=== PATIENT | female | born 1985 | race Caucasian/White ===

== ENCOUNTER 2023-11-24 19:22 | Emergency (ER) | payer BC ==
--- OUTSIDE RECORDS SUMMARY | 2023-11-24 19:25 | XMS REPORT | Continuity of Care Document ---
Author Name Unknown Address [address] [place] [address] thconnect Address [address] [place] [address] Care Team Providers Care Curriculum And Assessment Director Name Role Phone Eva_Juan Attending Clinician Unavailable Eva_Juan Admitting Clinician Unavailable Encounters Start Date/Time End Date/Time Encounter Type Admission Type Attending Clinicians Care Facility Care Department Encounter ID Source 2022-05-02 00:00:00 2022-05-02 00:00:00 Outpatient Sh[facility] VFP VFP [id number] [facility] e
[2023-11-24] MEDS ORDERED: KETOROLAC 30 MG/ML INJ ONE (19:47)
[2023-11-24] MEDS ORDERED: ONDANSETRON 4 MG/2 ML VIAL ONE (19:47)
--- NOTE | 2023-11-24 20:41 | RAD REPORT ---
EXAM DESCRIPTION: US - Transvaginal Study Probe - 11/24/2023 8:34 pm CLINICAL HISTORY: VAGINAL BLEEDING Pelvic pain. COMPARISON: No comparisons FINDINGS: The uterus is normal in size, shape and echotexture. The uterus measures 6.9 x 5.4 cm. 21 mm fibroid in the posterior mid aspect of the uterus along the subserosal level. The endometrial stripe measures 16 mm, normal. Both ovaries are normal in size, shape and echotexture. The right ovary measures 3.6 x 2.6 x 1.9 cm. The left ovary measures 5.0 x 3.6 x 3.4 cm. No ovarian or parovarian lesions. No adnexal masses. Normal Doppler blood flow was demonstrated to both ovaries. No significant pelvic ascites. IMPRESSION: 21 mm subserosal posterior myometrial fibroid.
[2023-11-24 20:45] LABS: Absolute Basophils 0.1 K/uL (0-0.5); Absolute Eosinophils 0.3 K/uL (0-0.5); Absolute Lymphocytes (CBC) 3.5 K/uL (0.7-4.9); Absolute Monocytes 0.8 K/uL (0.1-1.3); Basophils % 0.9 % (0-1.3); Eosinophils % 1.8 % (0-4.4); Hematocrit 30.3 % (36.0-45.0); Hemoglobin 9.6 g/dL (12.0-15.0); Lymphocytes % 25.4 % (15.3-44.8); MCH 20.9 pg (27.0-35.0); MCHC 31.7 g/dL (32.0-36.0); MPV 8.4 fL (7.6-11.3); Neutrophils % 65.9 % (41.7-73.7); Nucleated Red Blood Cells % 0.1 % (0-0); Platelets 345 thou/uL (152-406); RBC Red Blood Cell Count 4.59 M/uL (3.86-4.86); Red Cell Distribution Width 15.3 % (12.1-15.2)
[2023-11-24 21:01] LABS: Anion Gap 8.5 mEq/L (5.0-15.0); Potassium 3.5 mEq/L (3.5-5.1)
[2023-11-24 21:05] LABS: Specific Gravity 1.018 (1.005-1.030)
[2023-11-24 21:06] LABS: Specific Gravity 1.018 (1.005-1.030); Sqamous Epithelial <5 /HPF (None Seen); Urine Bacteria None Seen /HPF (<20); Urine Bilirubin NEGATIVE (Negative); Urine Blood 3+ (Negative); Urine Clarity Turbid (Clear); Urine Color Light-Yellow (Yellow); Urine Culture Reflex Order NOT NEEDED; Urine Glucose NEGATIVE (Negative); Urine Ketones NEGATIVE (Negative); Urine Microscopic Reflex YN ORDER UMIC; Urine Mucus Slight /HPF (None Seen); Urine Nitrite NEGATIVE (Negative); Urine Protein NEGATIVE (Negative); Urine RBC >50 /HPF (None Seen); Urine Urobilinogen Normal (Normal); Urine WBC <5 /HPF (<5)
--- NOTE | 2023-11-24 21:12 | EDPHYS ---
Physician Documentation [facility] Name: Zuleyka Walker Age: 38 yrs Sex: Female : 1985 Arrival Date: 11/24/2023 Time: 19:22 Bed 16 Private MD: ED Physician Bipin Feng HPI: 11/23 21:05 This 38 yrs old Female presents to ER via Ambulatory with complaints of Vaginal kb Bleeding, Vaginal Pain. 21:05 Pt is a 38 year old female who presents for irregular vaginal bleeding that started 5 kb days ago. States she started her period on Sunday and it ended on Sunday, which is abnormal, then started bleeding again on Sunday. States she has had to have blood transfusions in the past due to her heavy and irregular cycles so she wanted to get checked out. . Historical: - Allergies: 20:58 No Known Allergies; tl4 - Home Meds: 20:58 None [Active]; tl4 - PMHx: 20:58 None; tl4 - PSHx: 20:58 None; tl4 - Immunization history:: Adult Immunizations unknown. - Infectious Disease History:: Denies. - Social history:: Smoking status: Patient denies any tobacco usage or history of. ROS: 21:03 Constitutional: As per HPI kb Exam: 21:03 Constitutional: This is a well developed, well nourished patient who is awake, alert, kb and in no acute distress. Head/Face: Normocephalic, atraumatic. ENT: Moist Mucous membranes Cardiovascular: Regular rate Respiratory: Respirations even and unlabored. No increased work of breathing. Talking in full sentences Skin: Warm, dry with normal turgor. Normal color. MS/ Extremity: Pulses equal, no cyanosis. Neurovascular intact. Full, normal range of motion. Neuro: Awake and alert, GCS 15, oriented to person, place, time, and situation. Moves all extremities. Normal gait. 21:03 Abdomen/GI: Inspection: obese Bowel sounds: normal, Palpation: soft, in all quadrants, moderate abdominal tenderness, in the suprapubic area, right lower quadrant and left lower quadrant, Vital Signs: 19:30 BP 147 / 68; Pulse 84; Resp 18; Temp 98.5(O); Pulse Ox 100% on R/A; Weight 149.69 kg; tl4 Height 5 ft. 5 in. ; Pain 8/10; 19:30 Body Mass Index 54.91 (149.69 kg, 165.1 cm) tl4 19:30 Pain Scale: Adult tl4 MDM: 19:26 Patient medically screened. kb 21:04 Differential diagnosis: appendicitis, nonspecific abdominal pain, urinary tract kb infection. Data reviewed: vital signs, nurses notes. 21:05 Historians other than the Patient: Spouse/Significant Other: . Counseling: I had kb a detailed discussion with the patient and/or guardian regarding the historical points, exam findings, and any diagnostic results supporting the discharge/admit diagnosis, lab results, radiology results, the need for outpatient follow up, an OB/Gyne specialist, to return to the emergency department if symptoms worsen or persist or if there are any questions or concerns that arise at home. 11/23 19:34 Order name: Basic Metabolic Panel; Complete Time: 21:03 kb 11/23 19:34 Order name: CBC with Diff kb 11/23 19:34 Order name: Test, Urine; Complete Time: 21:09 kb 11/23 19:34 Order name: Urinalysis w/ reflexes; Complete Time: 21:09 kb 11/23 20:49 Order name: CBC Smear Scan EDMS 11/23 19:34 Order name: US Transvaginal Study (Probe); Complete Time: 20:43 kb 11/23 19:34 Order name: IV Saline Lock; Complete Time: 20:42 kb 11/23 19:34 Order name: Labs collected and sent; Complete Time: 20:42 kb 11/23 19:34 Order name: NPO; Complete Time: 19:38 kb Administered Medications: 20:53 Drug: Ondansetron IVP 4 mg IVP once; over 2 minutes Route: IVP; Infused Over: 2 mins; tl4 Site: left forearm; 20:53 Drug: Ketorolac IVP 15 mg IVP once Route: IVP; Site: left forearm; tl4 Disposition Summary: 11/24/23 21:11 Discharge Ordered Notes: Location: Home kb Condition: Stable kb Diagnosis - Abnormal uterine and vaginal bleeding, unspecified kb - Leiomyoma of uterus, unspecified kb Followup: kb - With: Private Physician - When: 2 - 3 days - Reason: Recheck today's complaints, Continuance of care, Re-evaluation by your physician Followup: kb - With: Emergency Department - When: As needed - Reason: Worsening of condition Discharge Instructions: - Discharge Summary Sheet kb - Uterine Fibroids, [id number] kb - Abnormal Uterine Bleeding, [id number] kb Forms: - Medication Reconciliation Form kb - Antibiotic Education kb - Prescription Opioid Use kb - Patient Portal Instructions kb - Leadership Thank You Letter kb - Work release form jb4 Prescriptions: - Zofran 4 mg Oral tablet - take 1 tablet ORAL route every 6 hours As needed; 12 tablet; Refills: 0, kb Product Selection Permitted Addendum: 11/26/2023 07:18 Co-signature as Attending Physician, Bipin Feng MD I reviewed the patient's care r n provided by the Advanced Practice Provider and agree with the diagnosis and treatment plan. Signatures: Dispatcher [employer] EDJosselin Harris, ROOM SERVICE ATTENDANT-C ROOM SERVICE ATTENDANT-Ckb Bipin Feng MD MD rn Logdahl, Darvin RN RN tl4 Corrections: (The following items were deleted from the chart) 11/23 21:05 21:03 Abdomen/GI: Inspection: abdomen appears normal, Bowel sounds: normal, Palpation: kb soft, in all quadrants, moderate abdominal tenderness, in the suprapubic area, right lower quadrant and left lower quadrant, kb 21:05 21:03 Back: CVA tenderness, that is mild, is noted on the right, kb kb
--- NOTE | 2023-11-24 21:12 | ER ---
Nurse's Notes [facility] Name: Zuleyka Walker Age: 38 yrs Sex: Female : 1985 Arrival Date: 11/24/2023 Time: 19:22 Bed 16 Private MD: Diagnosis: Abnormal uterine and vaginal bleeding, unspecified;Leiomyoma of uterus, unspecified Presentation: 11/23 19:30 Chief complaint: Patient states: Pt c/o heavy vaginal bleeding with irregular periods. tl4 Pt c/o lower abdominal pain. Coronavirus screen: At this time, the client does not indicate any symptoms associated with coronavirus-19. Ebola Screen: No symptoms or risks identified at this time. Initial Sepsis Screen: Does the patient meet any 2 criteria? No. Patient's initial sepsis screen is negative. Does the patient have a suspected source of infection? No. Patient's initial sepsis screen is negative. Risk Assessment: Do you want to hurt yourself or someone else? Patient reports no desire to harm self or others. Onset of symptoms was November 22, 2023. 19:30 Method Of Arrival: Ambulatory tl4 19:30 Acuity: EMERSON 3 tl4 Triage Assessment: 19:35 General: Appears in no apparent distress. Behavior is calm, cooperative. Pain: tl4 Complains of pain in pelvis. EENT: No signs and/or symptoms were reported regarding the EENT system. Neuro: Level of Consciousness is awake, alert, obeys commands, Oriented to person, place, time, situation, Moves all extremities. Full function Gait is steady, Speech is normal, Facial symmetry appears normal. Cardiovascular: Capillary refill < 3 seconds Patient's skin is warm and dry. Respiratory: Airway is patent Respiratory effort is even, unlabored, Respiratory pattern is regular, symmetrical, Breath sounds are clear bilaterally. GI: No signs and/or symptoms were reported involving the gastrointestinal system. : Reports vaginal bleeding that is heavy flow. Derm: No signs and/or symptoms reported regarding the dermatologic system. Musculoskeletal: No signs and/or symptoms reported regarding the musculoskeletal system. Historical: - Allergies: 20:58 No Known Allergies; tl4 - Home Meds: 20:58 None [Active]; tl4 - PMHx: 20:58 None; tl4 - PSHx: 20:58 None; tl4 - Immunization history:: Adult Immunizations unknown. - Infectious Disease History:: Denies. - Social history:: Smoking status: Patient denies any tobacco usage or history of. Screenin:01 [facility] ED Fall Risk Assessment (Adult) History of falling in the last 3 months, tl4 including since admission No falls in past 3 months (0 pts) Confusion or Disorientation No (0 pts) Intoxicated or Sedated No (0 pts) Impaired Gait No (0 pts) Mobility Assist Device Used No (0 pt) Altered Elimination No (0 pt) Score/Fall Risk Level 0 - 2 = Low Risk Oriented to surroundings, Maintained a safe environment, Educated pt \T\ family on fall prevention, incl call for assistance when getting out of bed, Assessed \T\ reinforced patient's understanding of fall precautions. Abuse screen: Denies threats or abuse. Denies injuries from another. Nutritional screening: No deficits noted. Tuberculosis screening: No symptoms or risk factors identified. Assessment: 21:00 Reassessment: No changes from previously documented assessment. Patient and/or family tl4 updated on plan of care and expected duration. Pain level reassessed. Patient is alert, oriented x 3, equal unlabored respirations, skin warm/dry/pink. 21:46 Reassessment: Patient appears in no apparent distress at this time. Patient and/or jb4 family updated on plan of care and expected duration. Pain level reassessed. Patient is alert, oriented x 3, equal unlabored respirations, skin warm/dry/pink. Vital Signs: 19:30 BP 147 / 68; Pulse 84; Resp 18; Temp 98.5(O); Pulse Ox 100% on R/A; Weight 149.69 kg; tl4 Height 5 ft. 5 in. ; Pain 8/10; 19:30 Body Mass Index 54.91 (149.69 kg, 165.1 cm) tl4 19:30 Pain Scale: Adult tl4 ED Course: 19:25 Patient arrived in ED. gm2 19:26 Josselin Fernandez F[facility]-C [facility]. kb 19:26 Bipin Feng MD is Attending Physician. kb 19:31 Darvin Bean, TIMOTHY is Primary Nurse. tl4 20:04 US Transvaginal Study (Probe) Sent. tl4 20:36 US Transvaginal Study (Probe) In Process Unspecified. EDMS 20:41 Initial lab(s) drawn, by me, sent to lab. Accessed peripheral vein via ultrasound, cm10 utilizing dynamic ultrasound technique Blood collected. 20:42 Basic Metabolic Panel Sent. tl4 20:42 CBC with Diff Sent. tl4 20:53 Test, Urine Sent. tl4 20:53 Urinalysis w/ reflexes Sent. tl4 20:58 Triage completed. tl4 21:00 Arm band placed on right wrist. tl4 21:02 No provider procedures requiring assistance completed. tl4 21:02 Patient has correct armband on for positive identification. Placed in gown. Bed in low tl4 position. Call light in reach. Side rails up X 1. Adult w/ patient. Provided Education on: ED process. Client placed on continuous cardiac and pulse oximetry monitoring. NIBP monitoring applied. Door closed. Noise minimized. Moved to private room. Warm blanket given. 21:46 IV discontinued, intact, bleeding controlled, No redness/swelling at site. Pressure jb4 dressing applied. Administered Medications: 20:53 Drug: Ondansetron IVP 4 mg IVP once; over 2 minutes Route: IVP; Infused Over: 2 mins; tl4 Site: left forearm; 20:53 Drug: Ketorolac IVP 15 mg IVP once Route: IVP; Site: left forearm; tl4 Medication: 21:01 VIS not applicable for this client. tl4 Outcome: 21:11 Discharge ordered by . rupali 21:46 Discharged to home ambulatory, with family, jb4 21:46 Condition: stable 21:46 Discharge instructions given to patient, Instructed on discharge instructions, follow up and referral plans. medication usage, Demonstrated understanding of instructions, follow-up care, medications, Prescriptions given X 1, 21:46 Patient left the ED. jb4 Signatures: Dispatcher [employer] EDOK Josselin Fernandez, CALL CENTER ASSISTANT-C FELIZ-Alex Rivera RN RN jb4 Nenita Hanson, RN RN cm10 Izzy Heck 2 Darvin Bean RN RN tl4
[2023-11-24 22:19] VITALS: BP 147/68; TEMP 98.5; O2SAT 100
[2023-11-24 22:34] LABS: Platelet Estimate ADEQ; White Blood Cell Scan OK (OK)
[2023-11-24 22:35] LABS: Blood Morphology Comment NOTED (NOT SEEN); Hypochromasia 1+; Microcytosis 1+
== END 2023-11-24 21:46 | disposition home or self-care (01) ==
LOC: ER 19:22
DX: N93.9 Abnormal uterine and vaginal bleeding, unspecified (principal); D25.9 Leiomyoma of uterus, unspecified
CPT/HCPCS: 85025; 81001; 80048; 36415; 81025; 76830; J2405

== ENCOUNTER 2024-05-22 17:59 | Emergency (ER) | payer BC ==
--- NOTE | 2024-05-22 21:21 | RAD REPORT ---
EXAMINATION: ONE VIEW CHEST XR CLINICAL INDICATION: Female, 39 years old.,SOB TECHNIQUE: Frontal chest projection is submitted. Examination is limited by patient positioning and t echnique. COMPARISON: No prior exam. FINDINGS: Superimposition of soft tissues along the lung bases limits penetration. The lungs are well inflated and clear. No pneumothorax or sizable effusion. The heart is normal in s ize. IMPRESSION: No acute intrathoracic abnormalities.
[2024-05-22 21:57] LABS: Absolute Basophils 0.1 K/uL (0-0.5); Absolute Eosinophils 0.1 K/uL (0-0.5); Absolute Lymphocytes (CBC) 2.7 K/uL (0.7-4.9); Absolute Monocytes 0.9 K/uL (0.1-1.3); Absolute Neutrophil 9.1 K/uL (1.8-8.0); Basophils % 0.9 % (0-1.3); Eosinophils % 1.1 % (0-4.4); Hematocrit 23.4 % (36.0-45.0); Hemoglobin 6.7 g/dL (12.0-15.0); Lymphocytes % 20.7 % (15.3-44.8); MCH 16.6 pg (27.0-35.0); MCHC 28.8 g/dL (32.0-36.0); MCV 57.4 fL (80-100); MPV 8.6 fL (7.6-11.3); Monocytes % 6.8 % (3.3-12.3); Neutrophils % 70.5 % (41.7-73.7); Platelets 275 thou/uL (152-406); RBC Red Blood Cell Count 4.07 M/uL (3.86-4.86); Red Cell Distribution Width 18.7 % (12.1-15.2)
[2024-05-22 22:13] LABS: ALT/SGPT 25 U/L (13-56); AST/SGOT 15 U/L (15-37); Albumin 4.1 g/dL (3.4-5.0); Alkaline Phosphatase 74 U/L (45-117); Anion Gap 8.7 mEq/L (5.0-15.0); BUN Blood Urea Nitrogen 9 mg/dL (7-18); Bicarbonate 28 mEq/L (21-32); Bilirubin Total 0.2 mg/dL (0.2-1.0); Globulin 4.1 g/dL (2.3-3.5); Glomerular Filtration Rate 73 ml/min (=/>90); Glucose Level 90 mg/dL (74-106); Potassium 3.7 mEq/L (3.5-5.1); Protein, Total 8.2 g/dL (6.4-8.2); Sodium Level 138 mEq/L (136-145)
[2024-05-22 22:15] LABS: Bilirubin Direct < 0.2 mg/dL (0-0.2)
[2024-05-22 23:28] LABS: Ferritin 1.8 ng/mL (8-252)
[2024-05-22] MEDS ORDERED: HYDROCODONE/APAP 7.5/325 MG TAB ONE (23:39)
[2024-05-22 23:50] LABS: Blood Morphology Comment NOTED (NOT SEEN); Hypochromasia 3+; Microcytosis 3+; Platelet Estimate ADEQ; Polychromasia 2+; White Blood Cell Scan OK (OK)
[2024-05-22] MEDS ORDERED: NA CHLORIDE 0.9% 250 ML ONE (23:58)
[2024-05-23] MEDS ORDERED: DIAZEPAM 5 MG TABLET ONE (03:01)
[2024-05-23] MEDS ORDERED: HYDROCODONE/APAP 10/325 TAB ONE (06:16)
--- NOTE | 2024-05-23 07:54 | ER ---
Nurse's Notes [facility] Name: Zuleyka Walker Age: 39 yrs Sex: Female : 1985 Arrival Date: 05/22/2024 Time: 17:59 Bed 8 Private MD: Diagnosis: Symptomatic Anemai , Dental Pain, Menorrhagia and anemia Presentation: 05/22 18:40 Chief complaint: Patient states: STATES OBGYN TOLD PT TO COME TO ED DUE TO HEMOGLOBIN db 6.6. STATES ALSO HAS LEFT UPPER DENTAL PAIN SINCE YESTERDAY. Coronavirus screen: Client denies travel out of the [place] in the last 14 days. At this time, the client does not indicate any symptoms associated with coronavirus-19. Ebola Screen: Patient negative for fever greater than or equal to 101.5 degrees Fahrenheit, and additional compatible Ebola Virus Disease symptoms Patient denies exposure to infectious person. Patient denies travel to an Ebola-affected area in the 21 days before illness onset. No symptoms or risks identified at this time. Initial Sepsis Screen: Does the patient meet any 2 criteria? No. Patient's initial sepsis screen is negative. Does the patient have a suspected source of infection? No. Patient's initial sepsis screen is negative. Risk Assessment: Do you want to hurt yourself or someone else? Patient reports no desire to harm self or others. Onset of symptoms was May 22, 2024. 18:40 Method Of Arrival: Ambulatory db 18:40 Acuity: EMERSON 3 db Triage Assessment: 18:41 General: Appears in no apparent distress. comfortable, Behavior is calm, cooperative. db Pain: Complains of pain in mouth. EENT: Reports pain in gums and left buccal mucosa. Respiratory: Airway is patent Respiratory effort is even, unlabored, Respiratory pattern is regular, symmetrical. 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 - Infectious Disease History:: Denies. - Social history:: Smoking status: Patient denies any tobacco usage or history of. Screenin:24 Abuse screen: Denies threats or abuse. Nutritional screening: No deficits noted. vc1 Tuberculosis screening: No symptoms or risk factors identified. 22:05 [facility] ED Fall Risk Assessment (Adult) History of falling in the last 3 months, vc1 including since admission No falls in past 3 months (0 pts) Confusion or Disorientation No (0 pts) Intoxicated or Sedated No (0 pts) Impaired Gait No (0 pts) Mobility Assist Device Used No (0 pt) Altered Elimination No (0 pt) Score/Fall Risk Level 0 - 2 = Low Risk Oriented to surroundings, Maintained a safe environment, Educated pt \T\ family on fall prevention, incl call for assistance when getting out of bed. Assessment: 22:07 Reassessment: Patient appears in no apparent distress at this time. No changes from vc1 previously documented assessment. Patient and/or family updated on plan of care and expected duration. Pain level reassessed. Patient is alert, oriented x 3, equal unlabored respirations, skin warm/dry/pink. 23:41 Reassessment: Patient appears in no apparent distress at this time. No changes from vc1 previously documented assessment. Patient and/or family updated on plan of care and expected duration. Pain level reassessed. Patient is alert, oriented x 3, equal unlabored respirations, skin warm/dry/pink. 05/23 00:28 Reassessment: Patient appears in no apparent distress at this time. No changes from vc1 previously documented assessment. Patient and/or family updated on plan of care and expected duration. Pain level reassessed. 01:31 Reassessment: Patient appears in no apparent distress at this time. No changes from vc1 previously documented assessment. Patient and/or family updated on plan of care and expected duration. Pain level reassessed. Patient is alert, oriented x 3, equal unlabored respirations, skin warm/dry/pink. 03:43 Reassessment: Patient appears in no apparent distress at this time. No changes from vc1 previously documented assessment. Patient and/or family updated on plan of care and expected duration. Pain level reassessed. Patient is alert, oriented x 3, equal unlabored respirations, skin warm/dry/pink. 07:18 Reassessment: Patient and/or family updated on plan of care and expected duration. Pain mb9 level reassessed. Patient is alert, oriented x 3, equal unlabored respirations, skin warm/dry/pink. Vital Signs: 05/22 18:40 BP 128 / 73; Pulse 85; Resp 18; Temp 99; Pulse Ox 99% ; Weight 154.22 kg; Height 5 ft. db 5 in. ; Pain 8/10; 21:23 BP 136 / 70; Pulse 74; Resp 17; Pulse Ox 100% ; vc1 22:06 BP 127 / 69; Pulse 75; Resp 17; Pulse Ox 100% ; vc1 23:00 BP 143 / 83; Pulse 72; Resp 18; Pulse Ox 100% ; vc1 05/23 00:00 BP 126 / 64; Pulse 71; Resp 20; Pulse Ox 99% ; vc1 01:30 BP 131 / 62; Pulse 72; Resp 18; Pulse Ox 98% ; vc1 03:30 BP 134 / 66; Pulse 74; Resp 18; Pulse Ox 98% ; vc1 04:30 BP 110 / 63; Pulse 71; Resp 18; Pulse Ox 98% ; vc1 05:30 BP 95 / 73; Pulse 78; Resp 18; Pulse Ox 100% ; vc1 08:07 BP 114 / 74; Pulse 78; Resp 18; Temp 97.4; Pulse Ox 100% on R/A; mb9 05/22 18:40 Body Mass Index 56.58 (154.22 kg, 165.1 cm) db 05/22 18:40 Pain Scale: Adult db ED Course: 05/22 18:02 Patient arrived in ED. im 18:41 Triage completed. db 18:41 Arm band placed on. db 19:24 Roderick Merino PA is PHCP. cp 19:24 Roderick Dotson MD is Attending Physician. cp 20:53 XRAY Chest (1 view) In Process Unspecified. EDMS 22:01 Vannesa Triplett, TIMOTHY is Primary Nurse. vc1 22:05 Patient has correct armband on for positive identification. Bed in low position. Call vc1 light in reach. cardiac monitor technician on. Pulse ox on. NIBP on. 05/23 02:42 Attending Physician role handed off by Roderick Dotson MD sp4 02:42 Geovanny Pacheco MD is Attending Physician. sp4 07:40 Primary Nurse role handed off by Vannesa Triplett RN mb9 07:40 Fernandez, Karuna, RN is Primary Nurse. mb9 07:40 No provider procedures requiring assistance completed. mb9 08:07 IV discontinued, intact, bleeding controlled, No redness/swelling at site. Pressure mb9 dressing applied. Administered Medications: 00:11 Drug: Hydrocodone-Acetaminophen PO (7.5 mg-325 mg) 1 tabs PO once; RASS on ADMIN: dd2 Combtv4, Very Agttd3, Agttd2, Rstlss1, AlertClm0, Drwsy-1, Lt Sdtn-2, Mod Sdtn-3, Dp Sdtn-4, UnArsble-5 Route: PO; 00:45 Follow up: Response: No adverse reaction; Marked relief of symptoms; Pain is decreased vc1 03:03 Drug: Diazepam PO 5 mg PO once Route: PO; dd2 03:30 Follow up: Response: No adverse reaction; Marked relief of symptoms; Anxiety decreased vc1 06:25 Drug: Elgin PO 10 mg-325 mg 1 tabs PO once Route: PO; vc1 08:08 Follow up: Response: No adverse reaction mb9 Medication: 05/22 22:05 VIS not applicable for this client. vc1 Outcome: 05/23 07:53 Discharge ordered by . sp4 08:07 Discharged to home ambulatory, with family, mb9 08:07 Condition: stable 08:07 Discharge instructions given to patient, Instructed on discharge instructions, follow up and referral plans. Demonstrated understanding of instructions, follow-up care, 08:08 Patient left the ED. mb9 Signatures: Dispatcher [employer] EDMS Roderick Merino PA PA cp Calcote, Vanessa RN RN vc1 Beckie Cain RN RN db Wilkerson, Mary Beth, RN RN mb9 Geovanny Pacheco MD MD sp4 Jen Ross DIANA RN RN dd2
--- NOTE | 2024-05-23 07:54 | EDPHYS ---
Physician Documentation [facility] Name: Zuleyka Walker Age: 39 yrs Sex: Female : 1985 Arrival Date: 05/22/2024 Time: 17:59 Bed 8 Private MD: ED Physician Geovanny Pacheco HPI: 05/22 19:55 This 39 yrs old Female presents to ER via Ambulatory with complaints of Abnormal Lab cp Results, Toothache, Facial Swelling. 19:55 Patient is a 39-year-old female who presents to the emergency department after being cp referred by her NIB ADJUSTER for low hemoglobin. Patient reports a history of anemia and has in the past been transfused with blood and also iron transfusions due to low iron. Patient has a history of heavy menstrual bleeding has been the cause of her anemia in the past but denies any current vaginal bleeding. Patient does report some dizziness upon standing but denies any chest pain and/or shortness of breath. Patient also complains of left upper tooth pain and is requesting an antibiotic due to concern for an infection. NIB ADJUSTER: 18:41 LMP 05/05/2024, unknown db Historical: - Allergies: 18:41 Sulfa (Sulfonamide Antibiotics); db 18:41 clindamycin HCl; db 18:41 Vancomycin; db - PMHx: 18:41 Hypothyroidism; POLYPS ON UTERUS; Asthma; DEPRESSION; BIPLOAR; db - Immunization history:: Adult Immunizations unknown. - Infectious Disease History:: Denies. - Social history:: Smoking status: Patient denies any tobacco usage or history of. ROS: 20:00 Constitutional: Negative for body aches, chills, fever, poor PO intake, cp 20:00 Eyes: Negative for injury, pain, redness, and discharge, cp 20:00 ENT: Positive for dental pain, Negative for drainage from ear(s), ear pain, difficulty swallowing, difficulty handling secretions, 20:00 Cardiovascular: Negative for chest pain, edema, palpitations, 20:00 Respiratory: Negative for cough, shortness of breath, wheezing, 20:00 Abdomen/GI: Negative for abdominal pain, vomiting, diarrhea, constipation, 20:00 : Negative for vaginal bleeding, 20:00 Neuro: Positive for dizziness, Negative for altered mental status, numbness, syncope, weakness, 20:00 All other systems are negative, Exam: 20:05 Constitutional: The patient appears in no acute distress, alert, awake, non-toxic, well cp developed, well nourished, obese, 20:05 Head/Face: Normocephalic, atraumatic. cp 20:05 Eyes: Periorbital structures: appear normal, Conjunctiva: normal, no exudate, no injection, Sclera: no appreciated abnormality, Lids and lashes: appear normal, bilaterally, 20:05 ENT: External ear(s): are unremarkable, Nose: is normal, Mouth: Lips: moist, Oral mucosa: pink and intact, moist, Posterior pharynx: Airway: no evidence of obstruction, patent, Dental exam: abscess, is not appreciated, fractured teeth are noted, diffusely, missing teeth, diffusely, pain, that is mild, specifically in the upper left lateral incisor (#10) and upper left cuspid (#11), Voice: is normal, 20:05 Neck: ROM/movement: is normal, is supple, without pain, no range of motions limitations, no meningismus, 20:05 Chest/axilla: Inspection: normal, 20:05 Cardiovascular: Rate: normal, Rhythm: regular, 20:05 Respiratory: the patient does not display signs of respiratory distress, Respirations: normal, no use of accessory muscles, no retractions, labored breathing, is not present, Breath sounds: are clear throughout, no decreased breath sounds, no stridor, no wheezing, 20:05 Abdomen/GI: Inspection: abdomen appears normal, Palpation: abdomen is soft and non-tender, in all quadrants, 20:05 Back: pain, is absent, ROM is normal, 20:05 Neuro: Orientation: to person, place \T\ time. Mentation: is normal, Motor: moves all fours, no focal deficits, Sensation: is normal, Gait: is steady, 21:45 ECG was reviewed by the Attending Physician. cp Vital Signs: 18:40 BP 128 / 73; Pulse 85; Resp 18; Temp 99; Pulse Ox 99% ; Weight 154.22 kg; Height 5 ft. db 5 in. ; Pain 8/10; 21:23 BP 136 / 70; Pulse 74; Resp 17; Pulse Ox 100% ; vc1 22:06 BP 127 / 69; Pulse 75; Resp 17; Pulse Ox 100% ; vc1 23:00 BP 143 / 83; Pulse 72; Resp 18; Pulse Ox 100% ; vc1 05/23 00:00 BP 126 / 64; Pulse 71; Resp 20; Pulse Ox 99% ; vc1 01:30 BP 131 / 62; Pulse 72; Resp 18; Pulse Ox 98% ; vc1 03:30 BP 134 / 66; Pulse 74; Resp 18; Pulse Ox 98% ; vc1 04:30 BP 110 / 63; Pulse 71; Resp 18; Pulse Ox 98% ; vc1 05:30 BP 95 / 73; Pulse 78; Resp 18; Pulse Ox 100% ; vc1 08:07 BP 114 / 74; Pulse 78; Resp 18; Temp 97.4; Pulse Ox 100% on R/A; mb9 05/22 18:40 Body Mass Index 56.58 (154.22 kg, 165.1 cm) db 05/22 18:40 Pain Scale: Adult db MDM: 05/22 19:24 Medical Screening Exam initiated cp 05/22 19:47 Order name: Type And Screen cp 05/22 19:47 Order name: Basic Metabolic Panel; Complete Time: 22:58 cp 05/22 22:58 Interpretation: Normal except: GFR 73. cp 05/22 19:47 Order name: CBC with Diff; Complete Time: 02:43 cp 05/22 22:58 Interpretation: Normal except: WBC 12.80; HGB 6.7; HCT 23.4; MCV 57.4; MCH 16.6; MCHC cp 28.8; RDW 18.7; NEUT A 9.1. 05/22 19:47 Order name: LFT's; Complete Time: 22:58 cp 05/22 19:47 Order name: Magnesium; Complete Time: 22:58 cp 05/22 22:17 Order name: CBC Smear Scan; Complete Time: 02:43 EDMS 05/22 23:00 Order name: TIBC; Complete Time: 23:32 cp 05/22 23:00 Order name: Ferritin; Complete Time: 23:32 cp 05/23 02:55 Order name: Packed RBC Leukored EDMS 05/23 04:57 Order name: ABO/RH no charge; Complete Time: 07:51 EDMS 05/22 19:47 Order name: XRAY Chest (1 view); Complete Time: 22:58 cp 05/22 19:47 Order name: Cardiac monitoring; Complete Time: 22:02 cp 05/22 19:47 Order name: EKG - Nurse/Tech; Complete Time: 22:02 cp 05/22 19:47 Order name: IV Saline Lock; Complete Time: 22:02 cp 05/22 19:47 Order name: Labs collected and sent; Complete Time: 22:02 cp 05/22 19:47 Order name: O2 Per Protocol; Complete Time: 22:02 cp 05/22 19:47 Order name: O2 Sat Monitoring; Complete Time: 22:02 cp 05/22 23:00 Order name: Transfuse; Complete Time: 06:26 cp EC:45 Rate is 77 beats/min. Rhythm is regular. VA interval is prolonged at 208 msec. QRS cp interval is normal. QT interval is normal. T waves are Inverted in lead aVR. Interpreted by me. Reviewed by me. Administered Medications: 05/23 00:11 Drug: Hydrocodone-Acetaminophen PO (7.5 mg-325 mg) 1 tabs PO once; RASS on ADMIN: dd2 Combtv4, Very Agttd3, Agttd2, Rstlss1, AlertClm0, Drwsy-1, Lt Sdtn-2, Mod Sdtn-3, Dp Sdtn-4, UnArsble-5 Route: PO; 00:45 Follow up: Response: No adverse reaction; Marked relief of symptoms; Pain is decreased vc1 03:03 Drug: Diazepam PO 5 mg PO once Route: PO; dd2 03:30 Follow up: Response: No adverse reaction; Marked relief of symptoms; Anxiety decreased vc1 06:25 Drug: [place] PO 10 mg-325 mg 1 tabs PO once Route: PO; vc1 08:08 Follow up: Response: No adverse reaction mb9 Disposition: 07:52 Co-signature as Attending Physician, Geovanny Pacheco MD I agree with the assessment sp4 and plan of care. I reviewed the patient's care provided by Advanced Practice Provider \T\ agree w/ the diagnosis \T\ care plan. I personally saw the pt \T\ performed a substantive portion of the visit, incldng all aspects of the (History/Exam/Medical Decision Making). Disposition Summary: 05/23/24 07:53 Discharge Ordered Notes: Location: Home sp4 Problem: new sp4 Symptoms: have improved sp4 Condition: Stable sp4 Diagnosis - Symptomatic Anemai , Dental Pain, Menorrhagia and anemia sp4 Followup: sp4 - With: Private Physician - When: 7 - 10 days - Reason: Recheck today's complaints Discharge Instructions: - Discharge Summary Sheet sp4 - Menorrhagia, Vphy-[place]-H[place] sp4 Forms: - Work release form mb9 - Patient Portal Instructions sp4 Signatures: Dispatcher [employer] EDMS Roderick Merino PA PA cp Calcote, Vanessa, RN RN vc1 Beckie Cain RN RN db Geovanny Pacheco MD MD sp4 SELMA CLARK RN RN dd2 Emmie Fernandez RN mb9 Corrections: (The following items were deleted from the chart) 05/22 19:48 19:48 BASIC METABOLIC PANEL+C.LAB.BRZ ordered. EDMS EDMS 19:48 19:48 CBC+H.LAB.BRZ ordered. EDMS EDMS 19:48 19:48 HEPATIC FUNCTION+C.LAB.BRZ ordered. EDMS EDMS 19:48 19:48 MAGNESIUM+C.LAB.BRZ ordered. EDMS EDMS 19:48 19:48 Urinalysis+U.LAB.BRZ ordered. EDMS EDMS 19:48 19:48 Test, Urine+UC.LAB.BRZ ordered. EDMS EDMS 19:48 19:48 Chest Single View+RAD.RAD.BRZ ordered. EDMS EDMS 19:48 19:48 TYPE AND SCREEN+BB.LAB.BRZ ordered. EDMS EDMS 05/23 06:26 05/22 19:47 Orthostatics ordered. cp vc1
--- NOTE | 2024-05-23 14:12 | EKG ---
Test Date: 2024-05-22 Test Time: 21:38:09 Files Supervisor: WINSOME MEASUREMENT RESULTS: Intervals: Rate: 77 MI: 208 QRSD: 78 QT: 366 QTc: 414 Harman: P: 51 MI: 208 QRS: 41 T: 46 INTERPRETIVE STATEMENTS: Normal sinus rhythm Nonspecific T wave abnormality Abnormal ECG No previous ECG available for comparison Electronically Signed On 05-23-24 14:10:38 CDT by Apolinar Guzman
[2024-05-23 18:49] VITALS: O2SAT 100
[2024-05-23 18:50] VITALS: BP 114/74; TEMP 97.4
== END 2024-05-23 08:08 | disposition home or self-care (01) ==
LOC: ER 17:59
PROC: 30233N1 Transfusion of Nonautologous Red Blood Cells into Peripheral Vein, Percutaneous Approach (ICD-10-PCS; principal; 2024-05-23)
DX: D64.9 Anemia, unspecified (principal); K08.89 Other specified disorders of teeth and supporting structures
CPT/HCPCS: 93005; 85025; 80048; 36415; 86900; 83735; 86850; 86901; 80076; 86920; 82728; 83540; 84466; 71045; 99284; 36430; P9016; J7050